=== PATIENT | female | born 1985 | race American Indian/Alaskan Native ===

== ENCOUNTER 2020-12-12 12:55 | Emergency (ER) | payer SELFPAY ==
[2020-12-12 14:07] VITALS: BP 145/100
[2020-12-12] MEDS ORDERED: ONDANSETRON 4 MG ODT TAB ONE (14:07)
[2020-12-12] MEDS ORDERED: ONDANSETRON 4 MG ODT TAB PO ONE (14:08)
--- NOTE | 2020-12-12 14:25 | Emergency Department Report ---
ED General Adult HPI - General Chief complaint: Abdominal Pain Stated complaint: ABD PAIN, HEADACHE AFTER EATING FOOD FROM [employer] Time Seen by Provider: 12/12/20 14:08 Source: patient Mode of arrival: Ambulatory Limitations: No Limitations - History of Present Illness Initial comments: 35-year-old -[place] female patient presents with complaints of nausea, vomiting, and diarrhea x 2 AM last night. Patient states her symptoms began a few hours after eating at [employer] and that she believes the burger was wrong. She denies any hematemesis/coffee-ground emesis, melena/hematochezia, fever/chills/sweats, cough, shortness of breath, or history of abdominal surgeries. She also reports mild abdominal cramping that occurs mainly with vomiting. No past medical history per patient. No improvement in symptoms with ibuprofen -: Sudden - Related Data Previous Rx's Medication Instructions Recorded Last Taken Type Famotidine [Pepcid] 20 mg PO BID #4 tablet 12/12/20 Unknown Rx Ondansetron [Zofran Odt] 4 mg PO Q8HR #10 tab.rapdis 12/12/20 Unknown Rx Allergies Allergy/AdvReac Type Severity Reaction Status Date / Time No Known Allergies Allergy Verified 12/12/20 14:07 ED Review of Systems ROS: Stated complaint: ABD PAIN, HEADACHE AFTER EATING FOOD FROM [employer] Other details as noted in HPI Constitutional: denies: chills, diaphoresis, fever, malaise, weakness Respiratory: denies: cough, shortness of breath Gastrointestinal: as per HPI, nausea, vomiting, diarrhea. denies: hematemesis, melena, hematochezia Genitourinary: denies: urgency, dysuria, frequency, hematuria Skin: denies: rash, lesions, change in color Hematological/Lymphatic: denies: swollen glands ED Past Medical Hx - Past Medical History Previous Medical History?: No - Surgical History Past Surgical History?: No - Social History Smoking Status: Current Every Day Smoker Substance Use Type: None - Medications Home Medications: Home Medications Medication Instructions Recorded Confirmed Last Taken Type Famotidine [Pepcid] 20 mg PO BID #4 tablet 12/12/20 Unknown Rx Ondansetron [Zofran Odt] 4 mg PO Q8HR #10 tab.rapdis 12/12/20 Unknown Rx ED Physical Exam - General Limitations: No Limitations General appearance: alert, in no apparent distress - Head Head exam: Present: atraumatic, normocephalic - Eye Eye exam: Present: normal appearance. Absent: scleral icterus - Respiratory Respiratory exam: Absent: respiratory distress - Cardiovascular Cardiovascular Exam: Present: regular rate, normal rhythm - GI/Abdominal GI/Abdominal exam: Present: soft, normal bowel sounds. Absent: distended, tenderness, guarding, rebound, rigid - Extremities Exam Extremities exam: Present: full ROM - Back Exam Back exam: Present: full ROM. Absent: CVA tenderness (R), CVA tenderness (L) - Neurological Exam Neurological exam: Present: alert, oriented X3, normal gait - Psychiatric Psychiatric exam: Present: normal affect, normal mood - Skin Skin exam: Present: warm, dry, intact, normal color. Absent: rash, cyanosis, diaphoretic, ecchymosis ED Course Vital Signs 12/12/20 14:04 Temperature 97.7 F Pulse Rate 69 Respiratory 20 Rate Blood Pressure 145/100 O2 Sat by Pulse 100 Oximetry ED Medical Decision Making - Medical Decision Making 35-year-old -[place] female patient presents with complaints of nausea, vomiting, and diarrhea x 2 AM last night. Patient states her symptoms began a few hours after eating at [employer] and that she believes the burger was wrong. She denies any hematemesis/coffee-ground emesis, melena/hematochezia, fever/chills/sweats, cough, shortness of breath, or history of abdominal surgeries. She also reports mild abdominal cramping that occurs mainly with vomiting. No past medical history per patient. No improvement in symptoms with ibuprofen Zofran given. Patient not tolerating fluids and food orally. Headache improved. Blood pressure remains elevated-patient states blood pressure was normal 1 week ago at her doctor's office. Recommend recheck in 2 days. Tylenol and ibuprofen recommended for headache. Discussed signs and symptoms that should prompt immediate return to the emergency department in detail with patient who verbalized understanding. She is well-appearing and stable for discharge home Critical care attestation.: If time is entered above; I have spent that time in minutes in the direct care of this critically ill patient, excluding procedure time. ED Disposition Clinical Impression: Viral gastroenteritis, Elevated blood pressure reading without diagnosis of hypertension Disposition: TO HOME OR SELFCARE Is pt being admited?: No Condition: Stable Instructions: Abdominal Pain (ED), Viral Gastroenteritis, Adult, Hypertension, Adult Additional Instructions: Please follow-up with the primary care doctor in 2 days for a blood pressure recheck Prescriptions: Famotidine [Pepcid] 20 mg PO BID #4 tablet Ondansetron [Zofran Odt] 4 mg PO Q8HR #10 tab.rapdis Referrals: [facility] [Provider Group] - 2-3 Days Forms: Work/School Release Form(ED)
[2020-12-12] MEDS ORDERED: ACETAMINOPHEN 325 MG TAB PO ONE (14:53)
[2020-12-12] MEDS ORDERED: IBUPROFEN 800 MG TAB PO ONE (14:53)
== END 2020-12-12 15:05 | disposition home or self-care (01) ==
LOC: ED 12:55
DX: A08.4 Viral intestinal infection, unspecified (principal); R03.0 Elevated blood-pressure reading, without diagnosis of hypertension; F17.200 Nicotine dependence, unspecified, uncomplicated; Z79.899 Other long term (current) drug therapy
CPT/HCPCS: 99282; Q0162